=== PATIENT | female | born 2000 | race Caucasian/White ===

== ENCOUNTER 2023-10-14 08:04 | Emergency (ER) | payer OTHER ==
[~2023-10-14] VITALS: Ht 160 cm; Wt 93.2 kg
[2023-10-14 08:07] VITALS: TEMP 98.6
[2023-10-14 08:50] LABS: BASO # 0.1 K/mm3 (0.0-0.2); BASO % 0.6 % (0.0-2.0); EOS # 0.2 K/mm3 (0.0-0.7); EOS % 1.9 % (0.0-4.0); GRAN # 6.6 K/mm3 (1.4-6.5); GRAN % 63.7 % (42.2-75.2); HEMATOCRIT 42.9 % (37.0-47.0); HEMOGLOBIN 14.1 g/dl (12.5-16.0); LYMPH # 2.6 K/mm3 (1.2-3.4); LYMPH % 25.1 % (20.0-51.0); MEAN CELL VOLUME 87 fl (80.0-100.0); MEAN CORPUSCULAR HEMOGLOBIN 29 pg (27-31); MEAN CORPUSCULAR HGB CONC 33 g/dl (33.0-37.0); MEAN PLATELET VOLUME 9.2 fl (7.4-10.4); MONO # 0.8 K/mm3 (0.1-0.6); MONO % 7.8 % (1.7-9.3); PLATELET COUNT 347 K/mm3 (130-400); RED BLOOD COUNT 4.93 M/mm3 (4.10-5.30); REDCELL DISTRIBUTION WIDTH-CV 13.2 % (11.5-14.5)
[2023-10-14 09:11] LABS: ALBUMIN 3.7 gm/dL (3.5-5.0); BILIRUBIN,TOTAL 0.4 mg/dL (0.2-1.2); CALCIUM 9.7 mg/dL (8.4-10.2); CREATININE, serum 0.82 mg/dL (0.57-1.11); POTASSIUM 4.1 mmol/L (3.5-4.5); TOTAL PROTEIN 7.4 gm/dL (6.2-8.1)
[2023-10-14] MEDS ORDERED: QUALITY CHOI500 U/GM TOP (09:24)
[2023-10-14 09:28] LABS: COLLECTION METHOD CLEAN CATCH
[2023-10-14 09:57] LABS: PH 6.5 (5.0-8.5); URINE APPEARANCE Clear (CLEAR/HAZY); URINE BLOOD Negative (NEGATIVE); URINE COLOR Yellow (YELLOW); URINE GLUCOSE Negative (NEGATIVE); URINE KETONE Negative (NEGATIVE); URINE NITRATE Negative (NEGATIVE); URINE PROTEIN(semi-quant) Negative (NEGATIVE); URINE UROBILINOGEN 0.2 E.U/dL (0.2-1.0)
[2023-10-14 09:58] LABS: URINE BACTERIA Rare /hpf (NONE SEEN); URINE RBC 0-2 /hpf (0-2)
[2023-10-14] MEDS ORDERED: ZOFRAN ODT4 MG PO (10:26)
[2023-10-14 10:37] VITALS: BP 122/80; PULSE 78
== END 2023-10-14 10:40 | disposition home or self-care (01) ==
LOC: COL.ER 08:04
PROVIDERS: Emergency Medicine
DX: R53.81 Other malaise (principal); Z91.040 Latex allergy status
CPT/HCPCS: J2405; J7120

== ENCOUNTER 2023-10-25 17:06 | Emergency (ER) | payer OTHER ==
[~2023-10-25] VITALS: Ht 160 cm; Wt 93.2 kg
[~2023-10-25 17:06] MED LIST: QUALITY CHOI500 U/GM TOP; ZOFRAN ODT4 MG PO
[2023-10-25 17:54] LABS: COLLECTION METHOD CLEAN CATCH
[2023-10-25] MEDS ORDERED: LORazepam 1 MG TAB PO ONE (18:00)
[2023-10-25 18:11] LABS: TRICYCLIC ANTIDEPRESS URINE POSITIVE (NEGATIVE)
[2023-10-25 18:17] LABS: PH 6.5 (5.0-8.5); URINE APPEARANCE Clear (CLEAR/HAZY); URINE COLOR Yellow (YELLOW)
[2023-10-25 18:18] LABS: URINE BLOOD TRACE-INTACT (NEGATIVE); URINE GLUCOSE Negative (NEGATIVE); URINE KETONE Negative (NEGATIVE); URINE NITRATE Negative (NEGATIVE); URINE PROTEIN(semi-quant) Negative (NEGATIVE); URINE RBC 0-2 /hpf (0-2); URINE UROBILINOGEN 0.2 E.U/dL (0.2-1.0)
[2023-10-25 18:20] LABS: HEMATOCRIT 41.4 % (37.0-47.0); HEMOGLOBIN 13.7 g/dl (12.5-16.0); MEAN CELL VOLUME 86 fl (80.0-100.0); MEAN CORPUSCULAR HEMOGLOBIN 29 pg (27-31); MEAN CORPUSCULAR HGB CONC 33 g/dl (33.0-37.0); MEAN PLATELET VOLUME 9.4 fl (7.4-10.4); PLATELET COUNT 380 K/mm3 (130-400); RED BLOOD COUNT 4.81 M/mm3 (4.10-5.30); REDCELL DISTRIBUTION WIDTH-CV 12.9 % (11.5-14.5)
[2023-10-25 18:29] LABS: ACETAMINOPHEN < 7.0 ug/mL (10-30); ALANINE AMINOTRANSFERASE 30 U/L (0-55); ALBUMIN 3.8 gm/dL (3.5-5.0); ALKALINE PHOSPHATASE 74 U/L (40-150); ANION GAP 11 mmol/L (7-16); AST,SGOT 18 U/L (5-34); BILIRUBIN,TOTAL 0.3 mg/dL (0.2-1.2); BLOOD UREA NITROGEN 13 mg/dL (7-19); CALCIUM 9.2 mg/dL (8.4-10.2); CARBON DIOXIDE 17 mmol/L (22-29); CHLORIDE 112 mmol/L (98-107); CREATININE, serum 0.88 mg/dL (0.57-1.11); GLUCOSE 131 mg/dL (70-99); SODIUM 140 mmol/L (136-145); TOTAL PROTEIN 7.7 gm/dL (6.2-8.1)
[2023-10-25 18:33] LABS: ALCOHOL(ethanol),MEDICAL < 10 mg/dL (0-10); SALICYLATE < 5.0 mg/dL (15.0-30.0)
[2023-10-25] MEDS ORDERED: ZANAFLEX 4MG TAB4 MG PO (19:40)
[2023-10-25] MEDS ORDERED: LIDODERM 5% PATC1 EA TP (19:41)
[2023-10-25] MEDS ORDERED: VIIBRYD40 MG PO (19:41)
[2023-10-25] MEDS ORDERED: ATIVAN 1MG T1 MG/TAB PO (19:41)
[2023-10-25] MEDS ORDERED: SEROQUEL 200MG200 MG PO (19:41)
[2023-10-25] MEDS ORDERED: EMGALITY120 MG/1 M SQ (19:42)
[2023-10-25] MEDS ORDERED: TOPROL XL 25MG25 MG PO (19:42)
[2023-10-25 19:45] LABS: BAND 1 % (0-10); LYMPHOCYTE 8 % (20.0-51.0); NEUTROPHILS 88 % (42.0-75.2); PLATELET ESTIMATE NORMAL (NORMAL)
[2023-10-25 20:46] VITALS: BP 135/79; PULSE 103; TEMP 98.5
== END 2023-10-25 20:46 | disposition home or self-care (01) ==
LOC: COL.ER 17:06
PROVIDERS: Nurse Practitioner
DX: F32.A Depression, unspecified (principal); R45.851 Suicidal ideations; Z91.040 Latex allergy status